=== PATIENT | female | born 1940 | race Caucasian/White ===

== ENCOUNTER 2019-02-04 13:54 | Inpatient (IN) ==
[2019-02-04] MEDS ORDERED: ALBUT/IPRATROP 3MG/0.5MG NEB 3 ML VIAL NEB STA ×2 (14:37→16:52)
--- NOTE | 2019-02-04 14:42 | Emergency Department Note ---
Entered by Rona Chen acting as a scribe for History of Present Illness General Chief complaint: Shortness of Breath/Dyspnea Time Seen by Provider: 02/04/19 14:27 Source: family (son) Limitations: altered mental status History of Present Illness Onset (ago): hour(s) 3 Location: chest Pain Consistency: + constant Associated symptoms: + denies other symptoms (no gagging with eating, no abdominal pain) and + cough Treatments prior to arrival: none The patient is a 78 year old female with a history of COPD who presents to the Emergency Room with complaints of wheezing that started this morning. She has been diagnosed with Alzheimers as well, so her son talked on her behalf. The patient lives in a senior living and is on a puree food diet. When she was eating this morning the senior living staff said she had trouble swallowing, and they heard some wheezing and coughing. Her son reports that she gets pneumonia pretty frequently. Her was there as well, who added she seems to have some intermittent pain in her chest area. The patient denies any gagging with eating and stomach pain. Home Medications Home Medications Medication Instructions Recorded Confirmed Type Caltrate 600 plus D 2 tab PO DAILY 02/04/19 02/04/19 History acetaminophen [Tylenol Extra 500 mg PO Q4H PRN 02/04/19 02/04/19 History Strength] ascorbic acid (vitamin C) 500 mg PO DAILY 02/04/19 02/04/19 History clopidogrel [Plavix] 75 mg PO DAILY 02/04/19 02/04/19 History cyanocobalamin (vitamin B-12) 1,000 mcg PO DAILY 02/04/19 02/04/19 History escitalopram oxalate 20 mg PO DAILY 02/04/19 02/04/19 History multivitamin-iron (hematinic) 1 tab PO DAILY 02/04/19 02/04/19 History polyethylene glycol 3350 [Miralax] 17 g PO DAILY PRN 02/04/19 02/04/19 History sennosides-docusate sodium [Senna 1 tab PO HS 02/04/19 02/04/19 History Plus] Allergies Allergy/AdvReac Type Severity Reaction Status Date / Time amoxicillin Allergy Unknown Unverified 02/04/19 16:26 aspirin Allergy Unknown Unverified 02/04/19 16:26 dipyridamole Allergy Unknown Unverified 02/04/19 16:26 prednisone Allergy Unknown Unverified 02/04/19 16:26 Sulfa (Sulfonamide Allergy Unknown Unverified 02/04/19 16:26 Antibiotics) vancomycin Allergy Unknown Unverified 02/04/19 16:26 Past Med/Surg History Medical History History of TIA (transient ischemic attack) (Chronic) Osteoporosis (Chronic) Tobacco abuse (Chronic) Alzheimers disease (Chronic) Surgical History History of back surgery (Chronic) Family History Other Family history unobtainable Social History Preferred Language: Slovak Communication Ability: Unable Current Living Situation: [facility] Current Living Situation Comment: [facility] Feels Safe at Home: Yes Safety Concerns: Feels Safe At This Time Smoking Status: Unknown if ever smoked Hx Alcohol Use: No Hx Substance Use: No Review of Systems See HPI for pertinent positives & negatives. and A total of 10 systems reviewed and were otherwise negative Physical Exam Vital Signs Vital Signs - 24 hr 02/04/19 13:55 02/04/19 14:57 02/04/19 15:25 Temperature 36.3 C L Temperature Source Axillary Sepsis Recent Fever Within 48 Hours No Sepsis New/Unexplained Change in Mental Status No Sepsis Action Taken by Nursing No Action Required Pulse Rate 84 84 92 H Pulse Rate [Right Finger] Pulse Rate from SpO2 Sensor 158 H Pulse Rhythm Regular Regular Respiratory Rate 22 26 H 28 H Respiratory Effort / Characteristics Non-Labored Respiratory Depth Normal Respiratory Pattern Regular Blood Pressure 119/74 108/60 Blood Pressure Mean 89 76 Pulse Oximetry 96 97 Oxygen Delivery Method Nasal Cannula Room Air Oxygen Flow Rate 2 02/04/19 15:28 02/04/19 16:01 02/04/19 16:30 Temperature Temperature Source Sepsis Recent Fever Within 48 Hours Sepsis New/Unexplained Change in Mental Status Sepsis Action Taken by Nursing Pulse Rate 89 89 Pulse Rate [Right Finger] 91 H Pulse Rate from SpO2 Sensor 94 H 88 Pulse Rhythm Respiratory Rate 26 H 22 26 H Respiratory Effort / Characteristics Spontaneous Respiratory Depth Respiratory Pattern Blood Pressure 122/76 122/76 Blood Pressure Mean 91 91 Pulse Oximetry 90 86 L Oxygen Delivery Method Room Air Room Air Oxygen Flow Rate 02/04/19 16:46 02/04/19 16:57 Temperature Temperature Source Sepsis Recent Fever Within 48 Hours Sepsis New/Unexplained Change in Mental Status Sepsis Action Taken by Nursing Pulse Rate Pulse Rate [Right Finger] 85 Pulse Rate from SpO2 Sensor Pulse Rhythm Respiratory Rate 22 Respiratory Effort / Characteristics Spontaneous Respiratory Depth Respiratory Pattern Blood Pressure Blood Pressure Mean Pulse Oximetry 86 L 94 Oxygen Delivery Method Room Air Nasal Cannula Oxygen Flow Rate 2 GENERAL: Patient is listless. She does respond to her . She does not follow commands appropriately. EYES: The conjunctivae are clear. The pupils are round and reactive. EARS, NOSE, MOUTH AND THROAT: Mucous members are dry NECK: The neck is nontender and supple. RESPIRATORY: Shallow respirations were noted. There are diminished breath sounds noted throughout. Scattered wheezing is noted in all serrano. CARDIOVASCULAR: Regular rate and rhythm noted there no murmurs rubs or gallops normal S1 normal S2 GASTROINTESTINAL: The abdomen is soft. Bowel sounds are present in all quadrants. Abdomen is nontender MUSCULOSKELETAL/EXTREMITIES: There is no evidence of gross deformity full range of motion is noted in the hips and shoulders SKIN: No significant pedal edema was noted. NEUROLOGIC: The patient is awake to verbal commands. She does follow commands slowly. She does not appear to follow commands appropriately. She is at her neurologic baseline according to her family members. Course 1430: Past medical records reviewed. The patient was evaluated in room C11B. A complete history and physical exam was performed. 1654: I discussed the patient's case with KAMRYN [facility]. The patient will be evaluated for further management by Dr. Castillo. Administered Medications Ascorbic Acid (Vitamin C) 500 mg PO DAILY [facility] Stop: 03/07/19 08:59 Last Admin: 02/06/19 08:57 Dose: Not Given Documented by: [id number] Admin: 02/05/19 08:20 Dose: 500 mg Documented by: [id number] Clopidogrel Bisulfate (Plavix) 75 mg PO DAILY [facility] Stop: 03/07/19 08:59 Last Admin: 02/06/19 08:50 Dose: 75 mg Documented by: [id number] Admin: 02/05/19 08:20 Dose: 75 mg Documented by: [id number] Cyanocobalamin (Vitamin B-12) 1,000 mcg PO DAILY [facility] Stop: 03/07/19 08:59 Last Admin: 02/06/19 08:57 Dose: Not Given Documented by: [id number] Admin: 02/05/19 08:21 Dose: 1,000 mcg Documented by: [id number] Escitalopram Oxalate (Lexapro Tab) 20 mg PO DAILY [facility] Stop: 03/07/19 08:59 Last Admin: 02/06/19 08:50 Dose: 20 mg Documented by: [id number] Admin: 02/05/19 08:20 Dose: 20 mg Documented by: [id number] Heparin Sodium (Porcine) (Heparin Sodium (Porcine)) 5,000 units SQ Q12 [facility] Stop: 03/07/19 08:59 Last Admin: 02/06/19 08:57 Dose: 5,000 units Documented by: [id number] Cosigned by: [id number] Admin: 02/05/19 20:54 Dose: Not Given Documented by: [id number] Admin: 02/05/19 09:19 Dose: 5,000 units Documented by: [id number] Cosigned by: [id number] Azithromycin 500 mg/ Dextrose 255 mls @ 125 mls/hr IV Q24H [facility] Stop: 02/10/19 20:03 Last Infusion: 02/05/19 19:28 Dose: 0 mls/hr Documented by: [id number] Admin: 02/05/19 17:25 Dose: 125 mls/hr Documented by: [id number] Ceftriaxone Sodium 1,000 mg/ (Dextrose) 50 mls @ 100 mls/hr IV Q24H [facility]; Protocol Stop: 02/11/19 20:59 Last Infusion: 02/05/19 22:17 Dose: 0 mls/hr Documented by: [id number] Admin: 02/05/19 21:47 Dose: 100 mls/hr Documented by: [id number] Infusion: 02/04/19 23:20 Dose: 0 mls/hr Documented by: [id number] Admin: 02/04/19 22:42 Dose: 100 mls/hr Documented by: [id number] Multivitamins (Multivitamin Tab) 1 tab PO DAILY [facility] Stop: 03/07/19 08:59 Last Admin: 02/06/19 08:57 Dose: Not Given Documented by: [id number] Admin: 02/05/19 08:20 Dose: 1 tab Documented by: [id number] Multivitamins/Minerals (Caltrate Plus) 2 tab PO DAILY [facility] Stop: 03/07/19 08:59 Last Admin: 08/27/19 08:57 Dose: Not Given Documented by: [id number] Admin: 02/05/19 08:15 Dose: 2 tab Documented by: [id number] Prednisone (Prednisone) 40 mg PO DAILY [facility] Stop: 02/09/19 09:01 Last Admin: 02/06/19 08:52 Dose: 40 mg Documented by: [id number] Admin: 02/05/19 08:19 Dose: 40 mg Documented by: [id number] Senna/Docusate Sodium (Senokot S) 1 tab PO HS [facility] Stop: 03/06/19 20:59 Last Admin: 02/05/19 20:55 Dose: 1 tab Documented by: [id number] Admin: 02/04/19 22:42 Dose: 1 tab Documented by: [id number] Discontinued Medications Albuterol (Duoneb) 3 ml NEB NOW STA Stop: 02/04/19 14:38 Last Admin: 02/04/19 15:27 Dose: 3 ml Documented by: [id number] Albuterol (Duoneb) 3 ml NEB NOW STA Stop: 02/04/19 16:53 Last Admin: 02/04/19 16:57 Dose: 3 ml Documented by: [id number] Dextrose (Dextrose 50%) 50 ml IV NOW STA Stop: 02/05/19 07:21 Last Admin: 02/05/19 08:03 Dose: 50 ml Documented by: [id number] Enoxaparin Sodium (Lovenox) 30 mg SQ Q24H [facility] Stop: 03/07/19 07:59 Last Admin: 02/05/19 10:36 Dose: Not Given Documented by: [id number] Haloperidol Lactate (Haldol) 2 mg IM NOW STA Stop: 02/05/19 21:53 Last Admin: 02/05/19 22:24 Dose: 2 mg Documented by: [id number] Sodium Chloride (Nss) 500 mls @ 999 mls/hr IV .Q31M [facility] Stop: 02/04/19 15:15 Last Infusion: 02/04/19 16:16 Dose: 0 mls/hr Documented by: [id number] Admin: 02/04/19 15:36 Dose: 999 mls/hr Documented by: [id number] Azithromycin 500 mg/ Dextrose 255 mls @ 127.5 mls/hr IV NOW STA Stop: 02/04/19 18:46 Last Infusion: 02/04/19 19:48 Dose: 0 mls/hr Documented by: [id number] Admin: 02/04/19 17:43 Dose: 127.5 mls/hr Documented by: [id number] Methylprednisolone 60 mg/ (Syringe) 1.96 mls @ 1.5 mls/min IV NOW STA Stop: 02/04/19 16:49 Last Admin: 02/04/19 17:43 Dose: 1.5 mls/min Documented by: [id number] Sodium Chloride (Nss 1000ml) 1,000 mls @ 100 mls/hr IV .Q10H [facility] Stop: 02/05/19 17:29 Last Infusion: 02/05/19 12:46 Dose: 0 mls/hr Documented by: [id number] Admin: 02/05/19 08:11 Dose: 100 mls/hr Documented by: [id number] Insulin Human Regular 10 units (/ Syringe) 10 mls @ 30 mls/min IV NOW ONE Stop: 02/05/19 07:46 Last Admin: 02/05/19 08:09 Dose: 30 mls/min Documented by: [id number] Cosigned by: [id number] Sodium Polystyrene Sulfonate (Kayexalate) 30 gm PO NOW STA Stop: 02/05/19 06:51 Last Admin: 02/05/19 09:22 Dose: Not Given Documented by: [id number] Medical Decision Making Differential Diagnosis Differential diagnosis includes: infections, reactive airway disease, pneumonia, pneumothorax, COPD, CHF, cardiac ischemia, pulmonary embolism, musculoskeletal, gastrointestinal, as well as others were entertained. Medical Records Attestation: I reviewed the patient's medical records. Home Medications Current Medication List: was personally reviewed by me Laboratory Data Attestation: I reviewed the patient's lab results. Result diagrams: 02/05/19 05:32 02/05/19 15:46 Lab Results 02/04/19 02/04/19 02/04/19 Range/Units 15:15 15:15 15:15 WBC 8.61 (4.8-10.8) K/uL RBC 4.46 (4.2-5.4) M/uL Hgb 13.4 (12.0-16.0) g/dL Hct 39.6 (37-47) % MCV 88.8 (80-100) fL MCH 30.0 (25-34) pg MCHC 33.8 (32-36) g/dL RDW Std Deviation 50.3 H (36.4-46.3) fL RDW Coeff of Barby 15.5 H (11.5-14.5) % Plt Count 273 (130-400) K/uL MPV 9.8 (7.4-10.4) fL Immature Gran % (Auto) 0.2 % Neut % (Auto) 65.2 % Lymph % (Auto) 22.6 % [place] % (Auto) 10.1 % Eos % (Auto) 1.4 % Baso % (Auto) 0.5 % Immature Gran # (Auto) 0.02 (0.00-0.02) K/uL Neut # (Auto) 5.61 (1.4-6.5) K/uL Lymph # (Auto) 1.95 (1.2-3.4) K/uL [place] # (Auto) 0.87 H (0.11-0.59) K/uL Eos # (Auto) 0.12 (0-0.5) K/uL Baso # (Auto) 0.04 (0-0.2) K/uL PT 10.9 (9.0-12.0) Seconds INR 1.1 (0.9-1.1) APTT 22.6 (21.0-31.0) Seconds PTT Ratio 0.8 Sodium 143 (136-145) mmol/L Potassium 4.0 (3.5-5.1) mmol/L Chloride 107 (98-107) mmol/L Carbon Dioxide 29 (21-32) mmol/L Anion Gap 7.0 (3-11) BUN 21 H (7-18) mg/dl Creatinine 0.60 (0.6-1.2) mg/dl Est Cr Clr Drug Dosing 45.9 ml/min Est GFR ( Amer) 99.8 Est GFR (Non-Af Amer) 86.1 BUN/Creatinine Ratio 34.4 H (10-20) Glucose 89 (70-99) mg/dl Calcium 8.7 (8.5-10.1) mg/dl Magnesium 2.3 (1.8-2.4) mg/dl Total Bilirubin 0.3 (0.2-1) mg/dl AST 18 (15-37) U/L ALT 19 (12-78) U/L Alkaline Phosphatase 136 H (45-117) U/L Troponin I < 0.015 (0-0.045) ng/ml Total Protein 6.3 L (6.4-8.2) gm/dl Albumin 2.8 L (3.4-5.0) gm/dl Globulin 3.5 (2.5-4.0) gm/dl Albumin/Globulin Ratio 0.8 L (0.9-2) Urine Color Urine Appearance (Clear) Urine pH (4.5-7.5) Ur Specific [place] (1.000-1.030) Urine Protein (Negative) Urine Glucose (UA) (Negative) Urine Ketones (Negative) Urine Blood (Negative) Urine Nitrite (Negative) Urine Bilirubin (Negative) Urine Urobilinogen (Negative) Ur Leukocyte Esterase (Negative) 02/04/19 Range/Units 15:25 WBC (4.8-10.8) K/uL RBC (4.2-5.4) M/uL Hgb (12.0-16.0) g/dL Hct (37-47) % MCV (80-100) fL MCH (25-34) pg MCHC (32-36) g/dL RDW Std Deviation (36.4-46.3) fL RDW Coeff of Barby (11.5-14.5) % Plt Count (130-400) K/uL MPV (7.4-10.4) fL Immature Gran % (Auto) % Neut % (Auto) % Lymph % (Auto) % [place] % (Auto) % Eos % (Auto) % Baso % (Auto) % Immature Gran # (Auto) (0.00-0.02) K/uL Neut # (Auto) (1.4-6.5) K/uL Lymph # (Auto) (1.2-3.4) K/uL [place] # (Auto) (0.11-0.59) K/uL Eos # (Auto) (0-0.5) K/uL Baso # (Auto) (0-0.2) K/uL PT (9.0-12.0) Seconds INR (0.9-1.1) APTT (21.0-31.0) Seconds PTT Ratio Sodium (136-145) mmol/L Potassium (3.5-5.1) mmol/L Chloride (98-107) mmol/L Carbon Dioxide (21-32) mmol/L Anion Gap (3-11) BUN (7-18) mg/dl Creatinine (0.6-1.2) mg/dl Est Cr Clr Drug Dosing ml/min Est GFR ( Amer) Est GFR (Non-Af Amer) BUN/Creatinine Ratio (10-20) Glucose (70-99) mg/dl Calcium (8.5-10.1) mg/dl Magnesium (1.8-2.4) mg/dl Total Bilirubin (0.2-1) mg/dl AST (15-37) U/L ALT (12-78) U/L Alkaline Phosphatase (45-117) U/L Troponin I (0-0.045) ng/ml Total Protein (6.4-8.2) gm/dl Albumin (3.4-5.0) gm/dl Globulin (2.5-4.0) gm/dl Albumin/Globulin Ratio (0.9-2) Urine Color Yellow Urine Appearance Clear (Clear) Urine pH 5.5 (4.5-7.5) Ur Specific [place] 1.026 (1.000-1.030) Urine Protein Negative (Negative) Urine Glucose (UA) Negative (Negative) Urine Ketones Negative (Negative) Urine Blood Negative (Negative) Urine Nitrite Negative (Negative) Urine Bilirubin Negative (Negative) Urine Urobilinogen Negative (Negative) Ur Leukocyte Esterase Negative (Negative) Imaging Data Radiologist's Impression: Radiology results as stated below per my review and the radiologist's interpretation: XR chest 1V portable CLINICAL HISTORY: Dyspnea. COMPARISON STUDY: No previous studies for comparison. FINDINGS: Evaluation is suboptimal given difficulty positioning. No pneumothorax or pleural effusion is noted. There is no evidence for pulmonary edema. A moderate sized hiatal hernia is noted. Cardiac size is normal. Patient is rotated. Multilevel vertebral augmentation is noted. IMPRESSION: 1. No acute cardiopulmonary findings. 2. Rotated study. 3. Moderate sized hiatal hernia. Electronically signed by: Danny Lamar M.D. 02/04/2019 4:04 PM ECG Data Attestation: I personally reviewed and interpreted this ECG as follows: Indication: SOB/dyspnea Rate (beats per minute): 93 Rhythm: normal sinus Findings: no ST depression, no ST elevation and no ectopy Blood Pressure Blood Pressure Findings: Normal blood pressure Blood Pressure Disposition: did not require urgent referral MDM Narrative The patient is an 78-year-old female who presented to the emergency home with family members for an evaluation of shortness of breath and cough. The patient was eating when she started to develop difficulty breathing. She has a cough and a physical exam that I thought were consistent with COPD given her current presentation could be consistent with a bronchitis as well. She was treated with IV fluids IV antibiotics and IV steroids. She was also given multiple DuoNeb treatments. I discussed the patient's laboratory and radiographic studies with her family members. Because of her condition I also discussed her case with the on-call [facility] hospitalist group. They have agreed to evaluate the patient in the emergency department for further management disposition. Impression & Plan COPD exacerbation, Bronchitis Discharge Plan Visit Data *Final* Discharge Date/Time: 02/04/19 19:01 Chief Complaint: Shortness of Breath/Dyspnea ED Provider: Parag Vega Discharge Problem: COPD exacerbation, Bronchitis Patient Disposition: Admitted As Inpatient Discharge Instructions Interventions: ED Discharge Assessment Last Done: 02/04/19 19:01 The scribe's documentation has been prepared under my direction and personally r eviewed by me in its entirety. I confirm that the note above accurately reflects all work, treatment, procedures, and medical decision making performed by me.
[2019-02-04] MEDS ORDERED: SODIUM CHLORIDE 0.9% 500 ML IV SCH (14:45)
[2019-02-04 15:34] LABS: Basophils # (auto) 0.04 K/uL (0-0.2); Basophils % (auto) 0.5 %; Eosinophils # (auto) 0.12 K/uL (0-0.5); Eosinophils % (auto) 1.4 %; Hematocrit (blood only) 39.6 % (37-47); Hemoglobin 13.4 g/dL (12.0-16.0); Immature Granulocytes # (auto) 0.02 K/uL (0.00-0.02); Immature Granulocytes % (auto) 0.2 %; Lymphocytes # (auto) 1.95 K/uL (1.2-3.4); Lymphocytes % (auto) 22.6 %; Mean Corpuscular Hgb Conc 33.8 g/dL (32-36); Mean Corpuscular Volume 88.8 fL (80-100); Mean Platelet Volume 9.8 fL (7.4-10.4); Monocytes # (auto) 0.87 K/uL (0.11-0.59); Monocytes % (auto) 10.1 %; Neutrophils # (auto) 5.61 K/uL (1.4-6.5); Neutrophils % (auto) 65.2 %; Platelet Count 273 K/uL (130-400); RDW Coefficient of Variation 15.5 % (11.5-14.5); RDW Standard Deviation 50.3 fL (36.4-46.3); Red Blood Count 4.46 M/uL (4.2-5.4); White Blood Count 8.61 K/uL (4.8-10.8)
[2019-02-04 15:34] LABS: Appearance Urine Clear (Clear); Bilirubin Urine Negative (Negative); Blood Urine Negative (Negative); Color Urine Yellow; Glucose Urine UA Negative (Negative); Ketones Urine Negative (Negative); Leukocyte Esterase Urine Negative (Negative); Nitrite Urine Negative (Negative); Protein Urine Negative (Negative); Specific Gravity Urine 1.026 (1.000-1.030); Urobilinogen Urine Negative (Negative); pH Urine 5.5 (4.5-7.5)
[2019-02-04 15:44] LABS: INR 1.1 (0.9-1.1); Partial Thromboplastin Ratio 0.8; Partial Thromboplastin Time 22.6 Seconds (21.0-31.0); Prothrombin Time 10.9 Seconds (9.0-12.0)
[2019-02-04 15:50] LABS: Alanine Aminotransferase 19 U/L (12-78); Albumin Level 2.8 gm/dl (3.4-5.0); Aspartate Aminotransferase 18 U/L (15-37); BUN Creatinine Ratio 34.4 (10-20); Blood Urea Nitrogen 21 mg/dl (7-18); Calcium 8.7 mg/dl (8.5-10.1); Carbon Dioxide 29 mmol/L (21-32); Chloride 107 mmol/L (98-107); Creatinine Clr Calc Pharmacy 45.9 ml/min; Est GFR (African American) 99.8; Est GFR (Non-African American) 86.1; Glucose 89 mg/dl (70-99); Magnesium 2.3 mg/dl (1.8-2.4); Sodium 143 mmol/L (136-145)
[2019-02-04 15:55] LABS: Albumin Globulin Ratio 0.8 (0.9-2); Alkaline Phosphatase 136 U/L (45-117); Bilirubin,Total 0.3 mg/dl (0.2-1); Globulin 3.5 gm/dl (2.5-4.0); Total Protein 6.3 gm/dl (6.4-8.2); Troponin I < 0.015 ng/ml (0-0.045)
--- NOTE | 2019-02-04 16:06 | XRay Report ---
XR chest 1V portable CLINICAL HISTORY: Dyspnea. COMPARISON STUDY: No previous studies for comparison. FINDINGS: Evaluation is suboptimal given difficulty positioning. No pneumothorax or pleural effusion is noted. There is no evidence for pulmonary edema. A moderate sized hiatal hernia is noted. Cardiac size is normal. Patient is rotated. Multilevel vertebral augmentation is noted. IMPRESSION: 1. No acute cardiopulmonary findings. 2. Rotated study. 3. Moderate sized hiatal hernia. Electronically signed by: Danny Lamar M.D. 02/04/2019 4:04 PM
[2019-02-04] MEDS ORDERED: AZITHROMYCIN 500 MG in DEXTROSE 5% 250 ML IV STA (16:47)
[2019-02-04] MEDS ORDERED: methylPREDNISolone 60 MG in SYRINGE 1 ML IV STA (16:48)
--- NOTE | 2019-02-04 18:44 | History & Physical Report ---
Date of Service February 04, 2019 Assessment & Plan (1) Aspiration pneumonitis: (2) Hypoxia: -Admit to [facility] [place] -Patient presenting from [facility] [place] [facility] after she developed coughing and sputum production while eating -In the ED, patient was found to have significant wheezing on exam and desaturated to 86% on room air, this improved with 2 L of oxygen via nasal cannula -CXR negative for acute cardiopulmonary findings -Received IV Solu-Medrol, IV azithromycin, nebulizers in the ED -Continue with prednisone 40 mg daily starting tomorrow, IV azithromycin and add on Rocephin, PRN nebs -Speech eval -Wean O2 as able (3) History of TIA (transient ischemic attack): -Continue Plavix (4) Alzheimers disease: (5) DVT prophylaxis: -SQ Lovenox History of Present Illness Chief Complaint: Cough, shortness of breath Primary Care Provider: [facility] 78-year-old female who presents to the ED from [facility] for evaluation of cough and shortness of breath. Patient has underlying advanced Alzheimer's and history is unobtainable from her. Per patient's son who is the bedside, he reports that while the patient was being fed dinner tonight she had sudden onset of cough and increased sputum production. Patient has been coughing for the past couple weeks however this was much worse than what it had been. Patient was then sent to the ED for further evaluation. Otherwise, the son reports she has been at her baseline. She has good days and bad days. She is wheelchair bound and transfers with assistance only. She seems to know who her is most the time however conversations are very limited. In the ED, patient was found to have significant wheezing on exam. She also desaturated to 86% on room air, this improved with 2 L of oxygen via nasal cannula. CXR is negative for acute findings. Patient was given IVF, IV Solu-Medrol 60 mg, IV azithromycin. Allergies Allergy/AdvReac Type Severity Reaction Status Date / Time amoxicillin Allergy Unknown Unverified 02/04/19 16:26 aspirin Allergy Unknown Unverified 02/04/19 16:26 dipyridamole Allergy Unknown Unverified 02/04/19 16:26 prednisone Allergy Unknown Unverified 02/04/19 16:26 Sulfa (Sulfonamide Allergy Unknown Unverified 02/04/19 16:26 Antibiotics) vancomycin Allergy Unknown Unverified 02/04/19 16:26 Home Medications Home Medications Medication Instructions Recorded Confirmed Type acetaminophen [Tylenol Extra 500 mg PO Q4H PRN 02/04/19 02/04/19 History Strength] ascorbic acid (vitamin C) 500 mg PO DAILY 02/04/19 02/04/19 History calcium carbonate-vitamin D3 2 tab PO DAILY 02/04/19 02/04/19 History [Caltrate 600 plus D] clopidogrel [Plavix] 75 mg PO DAILY 02/04/19 02/04/19 History cyanocobalamin (vitamin B-12) 1,000 mcg PO DAILY 02/04/19 02/04/19 History escitalopram oxalate 20 mg PO DAILY 02/04/19 02/04/19 History multivitamin-iron (hematinic) 1 tab PO DAILY 02/04/19 02/04/19 History polyethylene glycol 3350 [Miralax] 17 g PO DAILY PRN 02/04/19 02/04/19 History sennosides-docusate sodium [Senna 1 tab PO HS 02/04/19 02/04/19 History Plus] Past Med/Surg History Medical History History of TIA (transient ischemic attack) (Chronic) Osteoporosis (Chronic) Tobacco abuse (Chronic) Alzheimers disease (Chronic) Surgical History History of back surgery (Chronic) Family History Other Family history unobtainable Social History Preferred Language: Peruvian Communication Ability: Unable Current Living Situation: Correction Current Living Situation Comment: [place] Feels Safe at Home: Yes Safety Concerns: Feels Safe At This Time Smoking Status: Unknown if ever smoked Hx Alcohol Use: No Hx Substance Use: No Review of Systems Review of Systems: Unobtainable due to cognitive status Physical Exam Constitutional: WD/WN, vitals as above Eyes: PERRL, conjunctivae normal, anicteric sclerae ENMT: external ear and nose normal, oropharynx normal Respiratory: + abnormal respiratory effort (Poor effort) and no respiratory distress Auscultation: + diminished lung sounds; no rhonchi and no wheezes Cardiovascular: Rate/Rhythm: regular rate and regular rhythm Vessels: latoya l peripheral pulses Extremities: no edema Gastrointestinal (Abdomen): normal bowel sounds, soft, nontender, no hepatosplenomegaly Musculoskeletal: Extremities: no cyanosis and no clubbing Strength difficult to assess as patient has difficulty following commands Skin: no rashes, warm and dry Neurologic: PERRL, EOMI, accommodation nl, no face palsy, no dysarthria Psychiatric: Orientation: alert and oriented to person; + not oriented to place and + not oriented to time Affect: + flat affect Insight: + severely impaired insight Results & Data Vital Signs (Past 12 Hours) Vital Signs Temp Pulse Pulse Resp BP Pulse Ox 02/04/19 16:57 85 22 94 02/04/19 16:46 86 L 02/04/19 16:30 89 26 H 122/76 86 L 02/04/19 16:01 89 22 122/76 02/04/19 15:28 91 H 26 H 90 02/04/19 15:25 92 H 28 H 108/60 97 02/04/19 14:57 84 26 H 02/04/19 13:55 36.3 C L 84 22 119/74 96 Laboratory Results Short CBC 02/04/19 Range/Units 15:15 WBC 8.61 (4.8-10.8) K/uL Hgb 13.4 (12.0-16.0) g/dL Hct 39.6 (37-47) % Plt Count 273 (130-400) K/uL BMP 02/04/19 15:15 Sodium 143 Potassium 4.0 Chloride 107 Carbon Dioxide 29 BUN 21 H Creatinine 0.60 Glucose 89 Calcium 8.7 Cardiac Enzymes 02/04/19 Range/Units 15:15 Troponin I < 0.015 (0-0.045) ng/ml Liver Function 02/04/19 Range/Units 15:15 Total Bilirubin 0.3 (0.2-1) mg/dl AST 18 (15-37) U/L ALT 19 (12-78) U/L Alkaline Phosphatase 136 H (45-117) U/L Albumin 2.8 L (3.4-5.0) gm/dl Urine 02/04/19 Range/Units 15:25 Urine Color Yellow Urine Appearance Clear (Clear) Urine pH 5.5 (4.5-7.5) Ur Specific [place] 1.026 (1.000-1.030) Urine Protein Negative (Negative) Urine Glucose (UA) Negative (Negative) Diagnostic Findings CXR IMPRESSION: 1. No acute cardiopulmonary findings. 2. Rotated study. 3. Moderate sized hiatal hernia. Code Status & VTE Plan Code Status Patient is a DNR as per my discussion with patient's son who is the bedside. VTE Prophylaxis Plan VTE Prophylaxis will be ordered: Yes Supervising Physician Co-Signing Physician Notes Attending addendum: Patient seen and examined, care coordinated with Ely HARRY This is a 78-year-old female with advanced dementia severe dysphagia on pured diet secondary to dementia Alzheimer's type, bladder dysfunction wheelchair- bound, [facility] [place] [facility] patient noted to have severe respiratory distress hypoxia during dinnertime Patient needs complete assistance in meal, Staff was feeding patient pured food, after a spoonful, patient started to cough, oxygen saturation dropped, became very lethargic In the ER, patient's oxygenation was found to be low 80s, improved to more than 95 to 2 L oxygen supplement(at baseline patient is not on home O2) Chest x-ray does not show any obvious infiltrate Because of patient's high risk for aspiration, needed to medical floor, for respiratory support and treatment for possible aspiration pneumonitis Vitals as outlined above Exam: General very frail appearing elderly female, advanced dementia, screams with minimum touch or change of position HEENT, sclera nonicteric Lungs: Scattered wheeze noted, no rales no obvious respiratory distress: Patient on 2 L oxygen by nasal cannula Cardiopulmonary, regular rate and rhythm no lower extremity edema Abdomen: Scaphoid abdomen soft nontender Extremities: Contracted (chronically) Neuro: Advanced dementia, not able to follow any commands, moving all extremities, no focal neurological deficit noted, no facial droop, speech appears to be fluent, chronic dysphagia secondary to advanced dementia, chronic ambulatory dysfunction with contracted extremities secondary to the same ASSESSMENT PLAN Acute hypoxic respiratory failure: Presented with hypoxia, tachypnea due to possible aspiration during meal Scattered wheeze noted, With low pulse oximetry improved with oxygen supplement Respiratory status gradually improved to baseline Patient is continued with antibiotic, nebulizer treatment, supplemental oxygen, wean off oxygen as patient clinically improved Possible COPD exacerbation History of longtime tobacco use Presents with hypoxia secondary to aspiration, leading to acute bronchospasm, scattered wheeze noted Patient given nebulizer treatment IV Solu-Medrol in the ER, with improvement of symptoms Continue p.o. prednisone nebulizer treatment scheduled and as needed for wheeze Aspiration pneumonitis Baseline advanced dementia leading to severe dysphagia, on pured diet High risk for aspiration Presented with cough, hypoxia respiratory distress while having dinner Chest x-ray does not show any evidence of obvious infiltrate(radiological imaging sometimes lags behind clinical findings) Patient will be treated empirically for aspiration pneumonitis: Started on Rocephin and Zithromax (allergy to amoxicillin, ideally Unasyn later transition to p.o. Augmentin would have been appropriate) Will titrate antibiotics as patient clinically improves Speech therapy evaluation requested Due to advanced dementia high risk for aspiration, Family does not want any feeding tube Pure diet resumed with aspiration precaution Overall prognosis remains very poor Advance Alzheimer's dementia with behavioral and ambulatory dysfunction Patient has been wheelchair-bound, with contracted limits due to progression of dementia Severe oropharyngeal dysphagia secondary to dementia At baseline patient's recognized family members occasionally, Gets very agitated change of environment, change of caregivers Caution for delirium, sundowning CODE STATUS: DNR/DNI DVT prophylaxis Moderate to high risk, as patient is wheelchair-bound/bedbound at baseline Subcu heparin DISPOSITION, At present at [facility] dementia unit, Plan to return back to dementia unit when medically stable Plan of care updated to the son, and patient's present at bedside Brenna Castillo MD
[2019-02-04] MEDS ORDERED: ALBUT/IPRATROP 3MG/0.5MG NEB 3 ML VIAL NEB PRN (20:07)
[2019-02-04] MEDS ORDERED: ACETAMINOPHEN 325 MG TAB PO PRN (20:07)
[2019-02-04] MEDS ORDERED: POLYETHYLENE (MIRALAX) 17 GM PACK PO PRN (20:07)
[2019-02-04] MEDS: DOCUSATE SODIUM/SENNA 50/8.6MG TAB PO SCH (22:42)
[2019-02-04] MEDS: cefTRIAXone SODIUM 1,000 MG in DEXTROSE 5% 50 ML IV SCH (22:42)
[2019-02-05 06:01] LABS: Hematocrit (blood only) 38.5 % (37-47); Hemoglobin 12.8 g/dL (12.0-16.0); Mean Corpuscular Hemoglobin 29.6 pg (25-34); Mean Corpuscular Hgb Conc 33.2 g/dL (32-36); Mean Corpuscular Volume 89.1 fL (80-100); Mean Platelet Volume 9.9 fL (7.4-10.4); Platelet Count 260 K/uL (130-400); RDW Coefficient of Variation 15.4 % (11.5-14.5); RDW Standard Deviation 50.5 fL (36.4-46.3); Red Blood Count 4.32 M/uL (4.2-5.4); White Blood Count 4.42 K/uL (4.8-10.8)
[2019-02-05 06:33] LABS: Calcium 8.7 mg/dl (8.5-10.1); Creatinine Clr Calc Pharmacy 47.2 ml/min; Est GFR (African American) 101.5; Est GFR (Non-African American) 87.6; Potassium 5.7 mmol/L (3.5-5.1)
[2019-02-05] MEDS ORDERED: SODIUM POLYSTYRENE SULFONATE 30 GM/120 ML UDP PO STA (06:47)
[2019-02-05] MEDS ORDERED: SODIUM POLYSTYRENE SULFONATE 15G/60ML SUSP PO STA (06:50)
[2019-02-05] MEDS ORDERED: DEXTROSE 50% 50 ML SYRINGE IV STA (07:20)
[2019-02-05] MEDS ORDERED: NovoLIN-R INSULIN PER UNIT CHARGE IV STA (07:20)
[2019-02-05] MEDS ORDERED: SODIUM CHLORIDE 0.9% 1000ML 1,000 ML IV SCH (07:30)
[2019-02-05] MEDS ORDERED: INSULIN HUMAN REGULAR PER UNIT 10 UNITS in SYRINGE 9.9 ML IV ONE (07:45)
[2019-02-05] MEDS ORDERED: ENOXAPARIN INJ 30 MG/0.3 ML SYR SQ SCH (08:00)
[2019-02-05] MEDS: CALCIUM 600MG + VIT D 400 IU TAB PO SCH (08:15)
[2019-02-05] MEDS: predniSONE 20 MG TAB PO SCH (08:19)
[2019-02-05] MEDS: ASCORBIC ACID 500 MG TAB PO SCH (08:20)
[2019-02-05] MEDS: CLOPIDOGREL BISULFATE 75 MG TAB PO SCH (08:20)
[2019-02-05] MEDS: ESCITALOPRAM OXALATE 20 MG TAB PO SCH (08:20)
[2019-02-05] MEDS: MULTIVITAMIN TAB PO SCH (08:20)
[2019-02-05] MEDS: CYANOCOBALAMIN 500 MCG TABLET (VITAMIN B-12) PO SCH (08:21)
[2019-02-05] MEDS: HEPARIN SOD 5,000 UNIT/0.5 ML VIAL SQ SCH ×2 (09:19→20:54)
[2019-02-05 16:27] LABS: BUN Creatinine Ratio 37.1 (10-20); Calcium 8.4 mg/dl (8.5-10.1); Creatinine Clr Calc Pharmacy 44.1 ml/min; Est GFR (African American) 99.2; Est GFR (Non-African American) 85.6; Potassium 4.1 mmol/L (3.5-5.1)
[2019-02-05] MEDS: AZITHROMYCIN 500 MG in DEXTROSE 5% 250 ML IV SCH (17:25)
--- NOTE | 2019-02-05 18:18 | Hospitalist Progress Note ---
Date of Service February 05, 2019 Assessment & Plan (1) Acute respiratory failure with hypoxemia: Patient presented with tachycardia heart rate 158/sinus, tachypnea respiratory 28, was hypoxic 86% in room air Saturation improved after 2 L oxygen supplement, tachypnea and tachycardia resolved after nebulizer treatment giving IV steroids Acute hypoxemic respiratory failure secondary to aspiration pneumonitis, Baseline severe dysphagia secondary to advanced dementia, and possible COPD, history of long-term heavy tobacco abuse Respite status improved with nebulizer treatment, steroids, treatment of aspiration pneumonia Plan to wean down oxygen, as tolerated (2) COPD exacerbation: And admission, patient found to be hypoxic tachycardic tachypneic, diffuse wheeze auscultated in all lung serrano, History of long-term tobacco abuse possible underlying COPD Presented with COPD exacerbation acid with acute hypoxemic respiratory failure secondary to aspiration pneumonitis Respiratory status improved with IV Solu-Medrol, nebulizer treatment oxygen supplementation Patient is continued on p.o. prednisone, Continue neb treatment as needed, Wean down O2 as to keep SPO2 between 8892% (3) Aspiration pneumonitis: on empiric ABx with Rocephin /Zithromax ( allergy to Amoxicillin ) Patient's overall prognosis remains very poor, high risk for recurrent aspiration due to progressive dementia, noted to be on failure to thrive Baseline advanced dementia leading to severe dysphagia, on pured diet High risk for aspiration Presented with cough, hypoxia respiratory distress while having dinner Chest x-ray does not show any evidence of obvious infiltrate(radiological imaging sometimes lags behind clinical findings) Patient will be treated empirically for aspiration pneumonitis: Started on Rocephin and Zithromax (allergy to amoxicillin, ideally Unasyn later transition to p.o. Augmentin would have been appropriate) Will titrate antibiotics as patient clinically improves Speech therapy evaluation requested Due to advanced dementia high risk for aspiration, Family does not want any feeding tube Pure diet resumed with aspiration precaution Overall prognosis remains very poor (4) Hypoxia: - -In the ED, patient was found to have significant wheezing on exam and desaturated to 86% on room air, this improved with 2 L of oxygen via nasal cannula -CXR negative for acute cardiopulmonary findings due to combination of aspiration pneumonits /COPD exacerbation wean down 02 as clinically improves cont on Empiric Abx /PO steroids , neb tx Overall prognosis remains very poor (5) History of TIA (transient ischemic attack): -Continue Plavix (6) Alzheimers disease: advanced dementia with behavioral disturbance associated with severe dysphagia , on Pureed diet , severe ambulatory dysfunction wheel chair bound at baseline Prognosis remains very poor with progressive decline in functional status (7) DVT prophylaxis: CODE STATUS: DNR/DNI DVT prophylaxis Moderate to high risk, as patient is wheelchair-bound/bedbound at baseline Subcu heparin DISPOSITION, At present at [facility] dementia unit, Present with declining status, Social service consulted to discharge planning Plan of care updated to patient's present at bedside Subjective Patient remains agitated, screaming with minimum touch, Vitals stable, no fever or chills No obvious sign of respiratory distress noted vitals remained stable Plan to wean down oxygen as tolerated Patient is continued with pured diet with aspiration precaution-no overt signs or symptoms of aspiration noted during meals present at bedside Review of Systems Review of Systems: All systems reviewed & are unremarkable except as noted in HPI & below Physical Exam Constitutional: WD/WN, vitals as above + altered mental status (Advanced dementia) and + behavioral limitations (Does not allow to be touched or examined, screams with minimum attempt-advanced dementia with behavioral disturbance) Very frail elderly female, laying contracted in bed in position Eyes: + anicteric sclerae Neck: normal visual inspection Respiratory: + cough; + abnormal respiratory effort, no respiratory distress and no labored breathing Auscultation: + wheezes (Scattered decrease in all lung field) Cardiovascular: RRR, no murmur, no edema Gastrointestinal (Abdomen): Inspection/Auscultation: abdomen normal to inspection Percussion/Palpation: abdomen soft; abdomen nontender Musculoskeletal: Contracted extremities: Chronic Skin: no rashes, warm and dry Neurologic: moves all extremities; no focal motor deficits Moving all extremities/severe ambulatory dysfunction, secondary to advanced dementia Psychiatric: Advanced dementia with behavioral disturbance, Results & Data Vital Signs (Past 12 Hours) Vital Signs Temp Pulse Resp BP Pulse Ox 02/05/19 14:41 36.6 C 68 20 123/79 98 02/05/19 14:07 96 02/05/19 07:03 36.6 C 72 18 120/71 96 (1) Alzheimers disease Alzheimer's disease onset: unspecified onset Dementia behavioral disturbance: with behavioral disturbance Qualified Code(s): G30.9 - Alzheimer's disease, unspecified; F02.81 - Dementia in other diseases classified elsewhere with behavioral disturbance
[2019-02-05] MEDS ORDERED: D5W AND NSS 1,000 ML IV SCH (20:00)
[2019-02-05] MEDS: DOCUSATE SODIUM/SENNA 50/8.6MG TAB PO SCH (20:55)
[2019-02-05] MEDS: cefTRIAXone SODIUM 1,000 MG in DEXTROSE 5% 50 ML IV SCH (21:47)
[2019-02-05] MEDS ORDERED: HALOPERIDOL LACTATE 5 MG/ML 1 ML VIAL IM STA (21:52)
[2019-02-06] MEDS: CLOPIDOGREL BISULFATE 75 MG TAB PO SCH (08:50)
[2019-02-06] MEDS: ESCITALOPRAM OXALATE 20 MG TAB PO SCH (08:50)
[2019-02-06] MEDS: predniSONE 20 MG TAB PO SCH (08:52)
[2019-02-06] MEDS: ASCORBIC ACID 500 MG TAB PO SCH (08:57)
[2019-02-06] MEDS: HEPARIN SOD 5,000 UNIT/0.5 ML VIAL SQ SCH ×2 (08:57→20:01)
[2019-02-06] MEDS: CYANOCOBALAMIN 500 MCG TABLET (VITAMIN B-12) PO SCH (08:57)
[2019-02-06] MEDS: MULTIVITAMIN TAB PO SCH (08:57)
[2019-02-06] MEDS: CALCIUM 600MG + VIT D 400 IU TAB PO SCH (08:57)
--- NOTE | 2019-02-06 16:06 | Palliative Care Consultation ---
Date of Consultation February 06, 2019 Assessment & Plan (1) Palliative care encounter: Patient is an 78-year-old female with a past medical history significant for Alzheimer's dementia with dysphasia, COPD and a history of TIA on Plavix who is a resident at [facility] memory care unit when she had an episode of suspected aspiration while eating-patient became more lethargic with low O2 sats. Patient was transferred to the emergency room where she was found to have some wheezes, O2 sat was 86% on room air-she was placed on 2 L via nasal cannula. Chest x-ray did not show any acute disease but did show hiatal hernia. Patient has history of prior aspiration-she is on a pured diet with honey thickened liquids. Patient initially seen and examined-no family was at bedside. Patient was awake, somewhat alert, significant memory deficits, unable to give any medical history. Saw patient again when her was at bedside-he was able to give limited medical history. Contacted son who was on his way to the hospital-met with son and at length discussing treatment options as well as goals of care. Patient and had moved here several months ago from [place] where they were in a personal care facility. Patient was requiring closer observation due to Alzheimer's-the family decided to have her move to [place] near her other son, Chintan who works at [employer] and lives in [place]. Patient's lives with his son, she was placed at [facility] memory care due to her dementia. Over the last several months patient has declined rapidly-she is no longer ambulatory and is a full assist for transfers. Due to patient's rapid decline-she is no longer appropriate for a memory care unit. and son reports that patient has a detailed living will which includes no feeding tube-goal is comfort care. Discussed at length with both and son regarding allowing comfort feeds- knowing that she will have recurrent aspiration. Patient's CODE STATUS is currently DNR. Discussed addition of hospice care at a skilled facility to help meet the goals of the and son. is very dedicated to his -wants to be there and assist with her care on a daily basis. no longer drives-he uses [employer] ride for transportation. Family's first choice is [facility] as this is accessible for the . Patient is currently on IV antibiotics for aspiration pneumonitis as well as O2 at 2 L for hypoxia-sats are 96% on 2 L. Patient is also on prednisone due to her history of COPD. - Goal is for patient to be transferred to senior care facility where her can participate in her care with hospice involved. Collaborated with case management as well as attending physician -Aspiration pneumonitis-patient appears to be improving-wean O2 as tolerated -Hypoxia-improving, wean O2 as tolerated -COPD-not on scheduled inhalers at home, continue prednisone and as needed nebs- no wheezing on exam -History of TIA-continue Plavix -Dysphasia-aspiration precautions, allow comfort feeds -Alzheimer's dementia-diagnosed 15 years ago-now approaching end-stage. Patient appropriate for hospice Will continue to follow and assist family with medical decision making (2) Aspiration pneumonitis: (3) Hypoxia: (4) COPD exacerbation: (5) Alzheimers disease: Alzheimer's disease onset: unspecified onset Dementia behavioral disturbance: with behavioral disturbance Qualified Code(s): G30.9 - Alzheimer's disease, unspecified; F02.81 - Dementia in other diseases classified elsewhere with behavioral disturbance History of Present Illness Reason for Consultation: Discuss goals of care, assist family with medical decision making Requesting Physician: Dr Castillo Attending Physician: Brenna Castillo MD History of Present Illness Patient is an 78-year-old female with a past medical history significant for Alzheimer's dementia with dysphasia, COPD and a history of TIA on Plavix who is a resident at [facility] memory care unit when she had an episode of suspected aspiration while eating-patient became more lethargic with low O2 sats. Patient was transferred to the emergency room where she was found to have some wheezes, O2 sat was 86% on room air-she was placed on 2 L via nasal cannula. Chest x-ray did not show any acute disease but did show hiatal hernia. Patient has history of prior aspiration-she is on a pured diet with honey thickened liquids. Patient initially seen and examined-no family was at bedside. Patient was awake, somewhat alert, significant memory deficits, unable to give any medical history. Saw patient again when her was at bedside-he was able to give limited medical history. Contacted son who was on his way to the hospital-met with son and at length discussing treatment options as well as goals of care. Patient and had moved here several months ago from [place] where they were in a personal care facility. Patient was requiring closer observation due to Alzheimer's-the family decided to have her move to [place] near her other son, Chintan who works at [employer] and lives in [place]. Patient's lives with his son, she was placed at [facility] memory care due to her dementia. Over the last several months patient has declined rapidly-she is no longer ambulatory and is a full assist for transfers. Due to patient's rapid decline-she is no longer appropriate for a memory care unit. and son reports that patient has a detailed living will which includes no feeding tube-goal is comfort care. Discussed at length with both and son regarding allowing comfort feeds- knowing that she will have recurrent aspiration. Patient's CODE STATUS is currently DNR. Discussed addition of hospice care at a skilled facility to help meet the goals of the and son. is very dedicated to his -wants to be there and assist with her care on a daily basis. no longer drives-he uses [employer] ride for transportation. Family's first choice is [facility] as this is accessible for the . Patient is currently on IV antibiotics for aspiration pneumonitis as well as O2 at 2 L for hypoxia-sats are 96% on 2 L. Patient is also on prednisone due to her history of COPD. Goal is for patient to be transferred to senior care facility where her can participate in her care with hospice involved. Allergies Allergy/AdvReac Type Severity Reaction Status Date / Time amoxicillin Allergy Unknown Unverified 02/04/19 16:26 aspirin Allergy Unknown Unverified 02/04/19 16:26 dipyridamole Allergy Unknown Unverified 02/04/19 16:26 prednisone Allergy Unknown Unverified 02/04/19 16:26 Sulfa (Sulfonamide Allergy Unknown Unverified 02/04/19 16:26 Antibiotics) vancomycin Allergy Unknown Unverified 02/04/19 16:26 Home Medications Home Medications Medication Instructions Recorded Confirmed Type Caltrate 600 plus D 2 tab PO DAILY 02/04/19 02/04/19 History acetaminophen [Tylenol Extra 500 mg PO Q4H PRN 02/04/19 02/04/19 History Strength] ascorbic acid (vitamin C) 500 mg PO DAILY 02/04/19 02/04/19 History clopidogrel [Plavix] 75 mg PO DAILY 02/04/19 02/04/19 History cyanocobalamin (vitamin B-12) 1,000 mcg PO DAILY 02/04/19 02/04/19 History escitalopram oxalate 20 mg PO DAILY 02/04/19 02/04/19 History multivitamin-iron (hematinic) 1 tab PO DAILY 02/04/19 02/04/19 History polyethylene glycol 3350 [Miralax] 17 g PO DAILY PRN 02/04/19 02/04/19 History sennosides-docusate sodium [Senna 1 tab PO HS 02/04/19 02/04/19 History Plus] Patient History Medical History History of TIA (transient ischemic attack) (Chronic) Osteoporosis (Chronic) Tobacco abuse (Chronic) Alzheimers disease (Chronic) Surgical History History of back surgery (Chronic) Family History Other Family history unobtainable Social History Preferred Language: Indian Communication Ability: Unable Current Living Situation: [facility] Current Living Situation Comment: [place] Feels Safe at Home: Yes Safety Concerns: Feels Safe At This Time Smoking Status: Unknown if ever smoked Hx Alcohol Use: No Hx Substance Use: No Review of Systems Review of Systems: Unobtainable due to cognitive status Physical Exam Physical Exam: PE: Patient awake, alert on initial exam. Follow-up exams patient was asleep. Appears comfortable, NAD HEENT: EOMI, mild APACHE Respirations: Unlabored, diminished breath sounds right base-patient with right side dependent on exam CV: Regular rate, no edema Abdomen: Soft, nontender Extremities: Mild contractures Neuro: Positive cognitive deficits Results & Data Vital Signs (Past 12 Hours) Vital Signs Temp Pulse Resp BP Pulse Ox 02/06/19 14:19 99.7 F H 94 H 17 99/64 L 96 PG Care Time/CCT Total # of Minutes Spent Total Time Spent with Patient: Total time spent is greater than 50% in coordination of care (as documented) at patient's floor/unit and/or counseling patient: Prolonged Care Time Prolonged Care Time: Yes Total Prolonged Care Time: 30 Time Spent Attending Total time spent 100 minutes with greater than 50% of the time spent at bedside and meeting with family discussing patient's goals of care as well as options for care Critical Care Time Prolonged Care Time Prolonged Care Time: Yes Total Prolonged Care Time: 30 100
[2019-02-06] MEDS: AZITHROMYCIN 500 MG in DEXTROSE 5% 250 ML IV SCH (17:40)
--- NOTE | 2019-02-06 19:11 | Hospitalist Progress Note ---
Date of Service February 06, 2019 Assessment & Plan (1) Acute respiratory failure with hypoxemia: Patient presented with tachycardia heart rate 158/sinus, tachypnea respiratory 28, was hypoxic 86% in room air Saturation improved after 2 L oxygen supplement, tachypnea and tachycardia resolved after nebulizer treatment giving IV steroids Acute hypoxemic respiratory failure secondary to aspiration pneumonitis, Baseline severe dysphagia secondary to advanced dementia, and possible COPD, history of long-term heavy tobacco abuse Respite status improved, Tolerating pured diet well, Given patient's advanced dementia always being significant aspiration risk, no further alteration of diet possible, pt is DNR/DNI family does not want any feeding tube Progressive failure to thrive, SEVERE PROTEIN CALORIE MALNUTRITION Due to advanced dementia, poor p.o. intake, Overall prognosis remains very poor (2) COPD exacerbation: on admission, patient found to be hypoxic tachycardic tachypneic, diffuse wheeze auscultated in all lung serrano, History of long-term tobacco abuse possible underlying COPD Presented with COPD exacerbation acid with acute hypoxemic respiratory failure secondary to aspiration pneumonitis Respiratory status improved with IV Solu-Medrol, nebulizer treatment oxygen supplementation Patient is continued on p.o. prednisone, Continue neb treatment as needed, Wean down O2 as to keep SPO2 between 8892% (3) Aspiration pneumonitis: on empiric ABx with Rocephin /Zithromax ( allergy to Amoxicillin ) Patient's overall prognosis remains very poor, high risk for recurrent aspiratio n due to progressive dementia, noted to be on failure to thrive Baseline advanced dementia leading to severe dysphagia, on pured diet High risk for aspiration Presented with cough, hypoxia respiratory distress while having dinner Chest x-ray does not show any evidence of obvious infiltrate(radiological imaging sometimes lags behind clinical findings) Patient will be treated empirically for aspiration pneumonitis: Started on Rocephin and Zithromax (allergy to amoxicillin, ideally Unasyn later transition to p.o. Augmentin would have been appropriate) Will titrate antibiotics as patient clinically improves Speech therapy evaluation requested Due to advanced dementia high risk for aspiration, Family does not want any feeding tube Pure diet resumed with aspiration precaution Overall prognosis remains very poor (4) Hypoxia: - -In the ED, patient was found to have significant wheezing on exam and desaturated to 86% on room air, this improved with 2 L of oxygen via nasal cannula -CXR negative for acute cardiopulmonary findings due to combination of aspiration pneumonits /COPD exacerbation wean down 02 as clinically improves cont on Empiric Abx /PO steroids , neb tx Overall prognosis remains very poor (5) History of TIA (transient ischemic attack): -Continue Plavix (6) Alzheimers disease: advanced dementia with behavioral disturbance associated with severe dysphagia , on Pureed diet , severe ambulatory dysfunctio n wheel chair bound at baseline Prognosis remains very poor with progressive decline in functional status (7) DVT prophylaxis: CODE STATUS: DNR/DNI DVT prophylaxis Moderate to high risk, as patient is wheelchair-bound/bedbound at baseline Subcu heparin DISPOSITION, Appreciate input from palliative care, long discussion with patient's son (POA) Plan to transition care to [facility] with possible hospice Subjective Patient appears to be more calm and cooperative today, and son present at bedside So far has been tolerating pured diet, no sign of any aspiration Palliative care consulted as per family suggestion Appreciate input, Possible transition care to [facility] with hospice Physical Exam Constitutional: WD/WN, vitals as above + behavioral limitations (Advanced dementia,) Eyes: + anicteric sclerae Neck: normal visual inspection Respiratory: + cough; + abnormal respiratory effort, no respiratory distress and no labored breathing Auscultation: + wheezes (Scattered decrease in all lung field) Cardiovascular: RRR, no murmur, no edema Gastrointestinal (Abdomen): Inspection/Auscultation: abdomen normal to inspection Percussion/Palpation: abdomen soft; abdomen nontender Skin: no rashes, warm and dry Neurologic: moves all extremities; no focal motor deficits Results & Data Vital Signs (Past 12 Hours) Vital Signs Temp Pulse Resp BP Pulse Ox 02/06/19 14:19 37.6 C H 94 H 17 99/64 L 96 (1) Alzheimers disease Alzheimer's disease onset: unspecified onset Dementia behavioral disturbance: with behavioral disturbance Qualified Code(s): G30.9 - Alzheimer's disease, unspecified; F02.81 - Dementia in other diseases classified elsewhere with behavioral disturbance
[2019-02-06] MEDS: DOCUSATE SODIUM/SENNA 50/8.6MG TAB PO SCH (20:01)
[2019-02-07] MEDS: CALCIUM 600MG + VIT D 400 IU TAB PO SCH (08:58)
[2019-02-07] MEDS: ASCORBIC ACID 500 MG TAB PO SCH (08:58)
[2019-02-07] MEDS: CYANOCOBALAMIN 500 MCG TABLET (VITAMIN B-12) PO SCH (08:58)
[2019-02-07] MEDS: MULTIVITAMIN TAB PO SCH (08:58)
[2019-02-07] MEDS: ESCITALOPRAM OXALATE 20 MG TAB PO SCH (08:59)
[2019-02-07] MEDS: CLOPIDOGREL BISULFATE 75 MG TAB PO SCH (09:00)
[2019-02-07] MEDS: predniSONE 20 MG TAB PO SCH (09:01)
[2019-02-07] MEDS: HEPARIN SOD 5,000 UNIT/0.5 ML VIAL SQ SCH ×2 (09:04→20:50)
--- NOTE | 2019-02-07 19:39 | Hospitalist Progress Note ---
Date of Service February 07, 2019 Assessment & Plan (1) Acute respiratory failure with hypoxemia: Improved oxygenation with no respiratory distress. Continue O2 as needed after discharge to [facility] and during rehab. Wean as tolerated. (2) COPD exacerbation: Day 4 of steroids, continue prednisone for 5 days. Antibiotics were stopped overnight secondary to loss of IV site and were not started secondary to maximizing comfort with upcoming transition to hospice likely. She is not clinically decompensated and appears to be doing well overall. We will not restart antibiotic at this time. (3) Aspiration pneumonitis: No infiltrate seen on chest x-ray, no respiratory distress, off antibiotics and doing well. We will continue to monitor overnight. (4) History of TIA (transient ischemic attack): -Continue Plavix (5) Alzheimers disease: advanced dementia with behavioral disturbance associated with severe dysphagia , on Pureed diet , severe ambulatory dysfunction wheel chair bound at baseline Prognosis remains very poor with progressive decline in functional status Likely transition to Hospice shortly after arrival to SNF (6) Severe protein-calorie malnutrition: Cont to provide assistance with meals. (7) DVT prophylaxis: CODE STATUS: DNR/DNI DVT prophylaxis: heparin Dispo- Plan to transition care to [facility] with possible hospice Subjective Unable to obtain review of systems as patient is demented. Her baseline per nursing is responding with one-word answers and she is doing that now. She remains with her eyes closed and declines a physical exam or other interaction verbally. She has been tolerating all meals today per nursing staff. She is max assist. Review of Systems Review of Systems: Unobtainable due to mental health condition Physical Exam Physical Exam: CONSTITUTIONAL: thin, elderly, vitals as above, generally well-appearing EYES: Unable to evaluate as patient would not open her eyes. RESPIRATORY: clear to auscultation bilaterally, no crackles, rales or wheezes, normal respiratory effort CARDIOVASCULAR: regular rate and rhythm, S1 and 2 heard without murmurs, gallops or rubs, no JVD, no peripheral edema GASTROINTESTINAL: Soft, non-tender, nondistended MUSCULOSKELETAL: head is normocephalic and atraumatic, unable to evaluate strength as patient is noncompliant with exam peer SKIN: warm and dry NEUROLOGIC: Abnormal cognition, unable to evaluate fully as patient is noncompliant with exam. Results & Data Diagnostic Findings XR chest 1V portable CLINICAL HISTORY: Dyspnea. COMPARISON STUDY: No previous studies for comparison. FINDINGS: Evaluation is suboptimal given difficulty positioning. No pneumothorax or pleural effusion is noted. There is no evidence for pulmonary edema. A moderate sized hiatal hernia is noted. Cardiac size is normal. Patient is rotated. Multilevel vertebral augmentation is noted. IMPRESSION: 1. No acute cardiopulmonary findings. 2. Rotated study. 3. Moderate sized hiatal hernia. Medications Administered Current Inpatient Medications Acetaminophen (Tylenol) 650 mg PO Q4H PRN PRN Reason: pain/fever Stop: 03/06/19 20:06 Albuterol (Duoneb) 3 ml NEB Q4R PRN PRN Reason: shortness of breath Stop: 03/06/19 20:06 Ascorbic Acid (Vitamin C) 500 mg PO DAILY YEVGENIY Stop: 03/07/19 08:59 Last Admin: 02/07/19 08:58 Dose: Not Given Documented by: Clopidogrel Bisulfate (Plavix) 75 mg PO DAILY YEVGENIY Stop: 03/07/19 08:59 Last Admin: 02/07/19 09:00 Dose: 75 mg Documented by: Cyanocobalamin (Vitamin B-12) 1,000 mcg PO DAILY YEVGENIY Stop: 03/07/19 08:59 Last Admin: 02/07/19 08:58 Dose: Not Given Documented by: Escitalopram Oxalate (Lexapro Tab) 20 mg PO DAILY YEVGENIY Stop: 03/07/19 08:59 Last Admin: 02/07/19 08:59 Dose: 20 mg Documented by: Heparin Sodium (Porcine) (Heparin Sodium (Porcine)) 5,000 units SQ Q12 YEVGENIY Stop: 03/07/19 08:59 Last Admin: 02/07/19 09:04 Dose: 5,000 units Documented by: Multivitamins (Multivitamin Tab) 1 tab PO DAILY YEVGENIY Stop: 03/07/19 08:59 Last Admin: 02/07/19 08:58 Dose: Not Given Documented by: Multivitamins/Minerals (Caltrate Plus) 2 tab PO DAILY YEVGENIY Stop: 03/07/19 08:59 Last Admin: 02/07/19 08:58 Dose: Not Given Documented by: Polyethylene Glycol (Miralax Powder Packet) 17 gm PO DAILY PRN PRN Reason: Constipation Stop: 03/06/19 20:06 Prednisone (Prednisone) 40 mg PO DAILY YEVGENIY Stop: 02/09/19 09:01 Last Admin: 02/07/19 09:01 Dose: 40 mg Documented by: Senna/Docusate Sodium (Senokot S) 1 tab PO HS YEVGENIY Stop: 03/06/19 20:59 Last Admin: 02/06/19 20:01 Dose: Not Given Documented by: (1) Alzheimers disease Alzheimer's disease onset: unspecified onset Dementia behavioral disturbance: with behavioral disturbance Qualified Code(s): G30.9 - Alzheimer's disease, unspecified; F02.81 - Dementia in other diseases classified elsewhere with behavioral disturbance
[2019-02-08] MEDS: HEPARIN SOD 5,000 UNIT/0.5 ML VIAL SQ SCH (08:13)
[2019-02-08] MEDS: ESCITALOPRAM OXALATE 20 MG TAB PO SCH (08:14)
[2019-02-08] MEDS: predniSONE 20 MG TAB PO SCH (08:15)
[2019-02-08] MEDS: CLOPIDOGREL BISULFATE 75 MG TAB PO SCH (08:15)
--- NOTE | 2019-02-08 11:02 | Discharge Summary ---
Date of Service February 08, 2019 Admission HPI Per Admitting Provider 78-year-old female who presents to the ED from [facility] for evaluation of cough and shortness of breath. Patient has underlying advanced Alzheimer's and history is unobtainable from her. Per patient's son who is the bedside, he reports that while the patient was being fed dinner tonight she had sudden onset of cough and increased sputum production. Patient has been coughing for the past couple weeks however this was much worse than what it had been. Patient was then sent to the ED for further evaluation. Otherwise, the son reports she has been at her baseline. She has good days and bad days. She is wheelchair bound and transfers with assistance only. She seems to know who her is most the time however conversations are very limited. In the ED, patient was found to have significant wheezing on exam. She also desaturated to 86% on room air, this improved with 2 L of oxygen via nasal cannula. CXR is negative for acute findings. Patient was given IVF, IV Solu-Medrol 60 mg, IV azithromycin. Admission Exam Per Admitting Provider WD/WN, vitals as above Eyes: PERRL, conjunctivae normal, anicteric sclerae ENMT: external ear and nose normal, oropharynx normal Respiratory: + abnormal respiratory effort (Poor effort) and no respiratory distress Auscultation: + diminished lung sounds; no rhonchi and no wheezes Cardiovascular: Rate/Rhythm: regular rate and regular rhythm Vessels: normal peripheral pulses Extremities: no edema Gastrointestinal (Abdomen): normal bowel sounds, soft, nontender, no hepatosplenomegaly Musculoskeletal: Extremities: no cyanosis and no clubbing Strength difficult to assess as patient has difficulty following commands Skin: no rashes, warm and dry Neurologic: PERRL, EOMI, accommodation nl, no face palsy, no dysarthria Psychiatric: Orientation: alert and oriented to person; + not oriented to place and + not oriented to time Affect: + flat affect Insight: + severely impaired insight Principal Diagnosis Advanced Alzheimer's disease with behavioral disturbance Generalized Weakness Acute respiratory failure 2/2 COPD exacerbation and possible aspiration Severe protein calorie malnutrition Discharge Data Allergies Allergy/AdvReac Type Severity Reaction Status Date / Time amoxicillin Allergy Unknown Unverified 02/04/19 16:26 aspirin Allergy Unknown Unverified 02/04/19 16:26 dipyridamole Allergy Unknown Unverified 02/04/19 16:26 prednisone Allergy Unknown Unverified 02/04/19 16:26 Sulfa (Sulfonamide Allergy Unknown Unverified 02/04/19 16:26 Antibiotics) vancomycin Allergy Unknown Unverified 02/04/19 16:26 Consultations 02/04/19 16:52 ED Decision to Admit Stat 02/04/19 20:07 Consult Case Management - Discharge Planning Routine 02/06/19 11:22 Consult Palliative Care Routine Hospital Course (1) Acute respiratory failure with hypoxemia: (2) COPD exacerbation: (3) Aspiration pneumonitis: (4) History of TIA (transient ischemic attack): (5) Alzheimers disease: (6) Severe protein-calorie malnutrition: 78-year-old female with known end-stage Alzheimer's disease presented from memory care unit with increased wheezing and coughing after noted difficulty swallowing food. Scattered wheezing was noted in all lung serrano and she was admitted to the Hospitalist service for further evaluation and treatment. Chest x-ray did not show evidence of infiltrate she was treated with IV fluids antibiotics and steroids in the ER. She was also given multiple DuoNeb treatments with improvement. While in the emergency room she desaturated to 86% on room air and improved with 2 L of oxygen via nasal cannula. She was continued on prednisone 40 mg daily in addition to Rocephin and azithromycin for empiric coverage and treatment of COPD exacerbation. Speech therapy evaluated her and deemed her high risk for aspiration due to advanced dementia. A. Diet was resumed with strict aspiration precautions. Based on poor prognosis palliative consultation was placed. She was deemed of an appropriate hospice candidate, and was planned to go to SNF for temporary rehab with possible transition to hospice as outpatient. At time of discharge she was mentating at baseline, with history of abnormal cognition. She was able to answer with one- word answers which sometimes was not an appropriate answer to the question being asked. She was tolerating p.o. per nursing staff with assistance with meals. She was ambulating with max assist. Physical exam otherwise revealed a cachectic appearing elderly female in no acute distress. Lung exam was difficult secondary to lack of participation with exam, however, auscultation to lung serrano revealed no acute wheezing or crackles or rales. Heart exam was normal and the patient appeared euvolemic on exam without evidence of pedal edema or JVD. Abdomen was soft and nontender. [facility] with possible transition to hospice as outpatient. While admitted she did lose her IV site and Rocephin and azithromycin were stopped without clinical deterioration. Antibiotics were not resumed. Additionally she received 5 days of steroid therapy while in the hospital. This was not continued secondary to potential adverse side effects of continued steroid therapy without clear indication beyond 5 days per international GOLD guidelines on COPD management. Total Time Total Time Spent Total Time Spent (In Minutes): 60 Total Time Includes: Examination of the Patient, Discharge Planning, Medication Reconciliation and Communication With Other Providers Discharge Plan Discharge Items Patient Disposition: Transfer Longterm Fac Reason For Visit: HYPOXIA ASPIRATION PNEUMONITIS Discharge Diagnosis: ADVANCED ALZHEIMER'S DEMENTIA/SEVERE DYSPHASIA SECONDARY TO DEMENTIA/ASPIRATION PNEUMONITIS/SEVERE AMBULATORY DYSFUNCTION SECONDARY TO DEMENTIA Discharge Goals: Decrease discomfort and Therapeutic intervention Activity: As commented below Activity Comment: As tolerated Non-emergency contact: Primary Care Provider Call non-emergency contact if: you have any medication questions Follow-up/Referrals: Germaine [Primary Care Provider] - Diet: Regular Diet Texture: Pureed (blended smooth) Addtl Provider Instructions: ASPIRATION PRECAUTION: High risk for recurrent/silent aspiration secondary to advanced dementia/associated severe dysphagia Needs strict supervision, complete assistance with each meal Patient should be completely alert, sitting upright during each meals Small amount, alternate between liquid and solid All medications should be crushed and given in a carrier (pudding) DIET Continue pured diet as tolerated If patient is not cooperative with oral intake: Should not be forced, increases risk for aspiration Stop feeding if any coughing noted during the meals Please take all medications as instructed on discharge list below. It is recommended that you follow-up with your primary care provider within one week of discharge to ensure you are doing well. Per Palliative physician evaluation while here in the hospital, you are appropriate for transfer to Hospice, should the desire arrive in the near future. It was a pleasure taking care of you! Please call if you have any questions or problems. You can reach a [facility] hospitalist on duty at [facility] 24 hours a day by calling [phone]. Take care of yourself. Josseline Jamison, DO [facility] Hospitalist Prescriptions: Continued polyethylene glycol 3350 [Miralax] 17 gram Powder In Packet 17 g PO DAILY PRN (Reason: Constipation) RF: 0 sennosides-docusate sodium [Senna Plus] 8.6-50 mg Tablet 1 tab PO HS RF: 0 cyanocobalamin (vitamin B-12) 1,000 mcg Tablet 1,000 mcg PO DAILY RF: 0 clopidogrel [Plavix] 75 mg Tablet 75 mg PO DAILY RF: 0 acetaminophen [Tylenol Extra Strength] 500 mg Tablet 500 mg PO Q4H PRN (Reason: Pain) RF: 0 ascorbic acid (vitamin C) 500 mg Tablet 500 mg PO DAILY RF: 0 multivitamin-iron (hematinic) Tablet 1 tab PO DAILY RF: 0 escitalopram oxalate 20 mg Tablet 20 mg PO DAILY RF: 0 Caltrate 600 plus D 600 mg (1,500 mg)-800 unit Tablet,Chewable 2 tab PO DAILY RF: 0 Stand-Alone Forms: [facility] Discharge Orders: Discharge Order (Routine); Ordered 02/08/19 Ordered By: Josseline Jamison Skilled Items Patient informed of condition?: Yes DNR: Yes Discharge Level of Care: Skilled Communicable Disease: No Discharge Prognosis: Stable Admission Data Admit Date/Time: 02/04/19 17:36 Attending Provider: Josseline Jamison Admit Provider: Brenna Castillo Primary Care Provider: Luis Herron Providers: Brenna Castillo ; Naya Crook Service: Medical
--- NOTE | 2019-04-11 10:52 | Coding Query ---
CODING QUERY To promote full compliance with coding requirements relating to patient care, provider participation is requested in all cases of pattern perforating machine operator uncertainty. Please assist us with the question(s) below: Coding Question: Please review the list of discharge diagnoses below taken from the discharge summary and let me know below what you feel the final diagnosis/reason for visit should be. Thank you so much for your help with this! Have a great day! Discharge Diagnosis: ADVANCED ALZHEIMER'S DEMENTIA/SEVERE DYSPHASIA SECONDARY TO DEMENTIA/ASPIRATION PNEUMONITIS/SEVERE AMBULATORY DYSFUNCTION SECONDARY TO DEMENTIA Final Diagnosis: The patient had acute respiratory failure 2/2 aspiration pneumonitis and COPD exacerbation. Thank you! Thank you! Albina Vang Principal Diagnosis: "that condition established after study, to be chiefly responsible for occasioning the admission of the patient to the hospital for care." Co-Existing Principal Diagnosis: "when two or more diagnoses equally meet the criteria for principal diagnosis as determined by the circumstances of admission, diagnostic work up, and/or therapy provided, and the Alphabetic Index, Tabular List, or another coding guideline does not provide sequencing direction, any one of the diagnoses may be sequenced first." "When the physician has documented what appears to be a current diagnosis in the body of the record, but has not included the diagnosis in the final diagnostic statement, the physician should be asked whether the diagnosis should be added." (Source Coding [facility] 2 QTR90. p3-4) FAB
== END 2019-02-08 13:00 | DRG 177 ==
LOC: ED 13:54 → SUATTDRO 17:36 → 4W 17:36